=== PATIENT | male | born 1940 | race Caucasian/White ===

== ENCOUNTER 2019-01-16 06:38 | Day surgery (SDC) ==
[2019-01-16 07:11] VITALS: TEMP 98.6
[2019-01-16] MEDS ORDERED: LIDOCAINE 1% 20 ML MDV ID STA (07:12)
[2019-01-16] MEDS ORDERED: VERSED ONE (08:00)
[2019-01-16] MEDS ORDERED: DIPRIVAN 20 ML VIAL IVP ONE (08:00)
--- NOTE | 2019-01-18 07:48 | OP ---
INDICATIONS FOR PROCEDURE: 78-year-old gentleman presents for colonoscopy exam. He has a history of adenomatous polyps with the last colonoscopy approximately three years ago. MEDICATIONS: SEE ANESTHESIA NOTES. PROCEDURE: COLONOSCOPY, SNARE POLYPECTOMY. REPORT: The risks, benefits, alternatives and limitations were discussed in detail with the patient. Informed consent was obtained. After adequate sedation was achieved, a digital rectal exam revealed good tone, no masses. The colonoscope was introduced into the rectum and advanced under direct visual guidance to the cecum. The cecum was identified by the appendiceal orifice and IC valve. I then slowly withdrew the scope in circumferential manner examining the mucosa quite carefully. I looked on the proximal and distal side of folds and flexures as best as possible. I was able to retroflex the scope in the right colon and left colon to increase visualization. In the proximal mid transverse colon there was a small 5 mm semi sessile polyp. I removed this by snare technique. There were several small mouth diverticula scattered throughout the sigmoid colon. No other abnormalities were noted including on retroflex view of the anal canal. The prep was good. The withdrawal time was 12 minutes and 38 seconds. The patient tolerated the procedure well with stable vital signs and pulse oximetry throughout. IMPRESSION: 1. SMALL POLYP REMOVED. 2. DIVERTICULOSIS. RECOMMENDATIONS: 1. High fiber diet. 2. Office visit as needed. 3. Await polyp pathology. If everything is benign and he is clinically well consider a surveillance colonoscopy examination again in 5 years, sooner if signs or symptoms would indicate otherwise. cc: Dr. Elis FOX
[2019-01-18 14:42] VITALS: BP 121/67
== END 2019-01-16 09:10 | disposition home or self-care (01) ==
LOC: SURG 06:38
PROVIDERS: ATTEND Internal Medicine Gastroenterology
DX: Z86.010 Personal history of colon polyps (principal); D12.3 Benign neoplasm of transverse colon; K57.90 Diverticulosis of intestine, part unspecified, without perforation or abscess without bleeding